=== PATIENT | male | born 1955 | race Caucasian/White ===

== ENCOUNTER 2022-06-09 06:10 | Day surgery (SDC) | payer MEDICARE, OTHER ==
[~2022-06-09] VITALS: Ht 175.3 cm; Wt 99.8 kg
[~2022-06-09 06:10] MED LIST: AMLODIPINE BESY10 MG PO; BISOPROLOL-HCT1 EAC2 PO; CYCLOBENZAPRINE5 MG PO; FISH OIL + D31 EACH PO; LISINOPRIL-HCT1 EAC1 PO; NAPROXEN500 MG PO; NORCO 5-325 TA1 EACH PO; TERAZOSIN HCL10 MG PO; VASCEPA1 GM PO
--- NOTE | 2022-06-09 08:05 | NUR ---
06/09/22 0805 Valeria Baker 0801 PATIENT ARRIVES TO PACU AWAKE BUT DROWSY. RESP EVEN AND UNLABORED, NC AT 3 LITERS. PASSING GAS.
--- NOTE | 2022-06-09 08:41 | NUR ---
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 PT HERE FOR HIS FIRST SCOPE-DID NOT SEEM TO TOLERATE PREP WELL. PT MENTIONED HIS SISTER WILL BE HERE AT [place]. THANKED ME FOR VISIT AND FOR CARING FOR HIS MOTHER THAT PASSED HERE RECENTLY AT [facility]. GAVE BLESSING AND WILL FOLLOW
--- NOTE | 2022-06-11 18:06 | PATH ---
[facility] [address] [facility] [place] [place], [place] [address] Signed SPECIMEN(S): A POLYP AT 20 CM SPECIMEN SOURCE: A. POLYP AT 20 CM CLINICAL HISTORY: Rectal hemorrhage. Postop Dx: Multiple diverticula, polyp. FINAL PATHOLOGIC DIAGNOSIS: Colon, 20 cm, polypectomy: - Benign colonic mucosa with prominent intramucosal lymphoid aggregate. - An additional fragment of colonic epithelium is within normal limits. - No evidence of neoplasia. COMMENT: Sections of colonic tissue demonstrate a benign intramucosal lymphoid aggregate. Intramucosal lymphoid aggregates can sometimes appear as polyps endoscopically. They have no clinical significance. There is no evidence of dysplasia or malignancy. TWK:rolly:C2NR MICROSCOPIC EXAMINATION: Histologic sections of all submitted blocks are examined by light microscopy. These findings, together with the gross examination, support the pathologic diagnosis. GROSS DESCRIPTION: The specimen, labeled and designated "Keisha, colon polyp at 20 cm," is received in formalin and consists of two jerez soft tissue fragments, ranging from 0.2 cm. Entirely submitted in (A1). JS (under the direct supervision of a pathologist) The Gross Description was prepared using a voice recognition system. The report was reviewed for accuracy; however, sound-alike word errors, addition and/or deletions may occur. If there is any question about this report, please contact Client Services. PERFORMING LABORATORY: The technical component was performed by [facility], [address] [place] [id number] (CLIA# [id number]). The professional interpretation was performed by [facility], [facility], [address] [place] [address] (CLIA#: PATIENT NAME: JAMAL HAHN PATHOLOGY DATE OF : 53 REPORT #: [id number] PHYSICIAN: YUE PATHOLOGY PCP: VICKY CHAVEZ PA-C REPORT IS CONFIDENTIAL AND NOT TO BE RELEASED WITHOUT AUTHORIZATION [facility] [address] [place], [place] [address] Signed [id number]). Diagnostician: Dominic Wallace MD Pathologist Electronically Signed 06/11/2022 Copies: ~ PATIENT NAME: JAMAL HAHN PATHOLOGY DATE OF : 53 REPORT #: [id number] PHYSICIAN: YUE PATHOLOGY PCP: VICKY CHAVEZ PA-C REPORT IS CONFIDENTIAL AND NOT TO BE RELEASED WITHOUT AUTHORIZATION
--- NOTE | 2022-06-12 08:29 | OR ---
[facility] [address] [place], [place] [address] Signed DATE OF OPERATION: 06/09/2022 SURGEON: Bernice Bynum MD PREOPERATIVE DIAGNOSES: Episodic rectal bleeding. POSTOPERATIVE DIAGNOSES: 1. Extensive diverticulosis. 2. Hyperplastic polyp, sigmoid colon. 3. Minimal hemorrhoidal changes. PROCEDURES: Total colonoscopy to cecum with cold morcellation polypectomy x1. ANESTHESIA: Intravenous sedation, fentanyl 100 mcg, Versed 6 mg. INDICATION: This 66-year-old white man is a patient of CON[facility] Heller. He has never undergone colonoscopy in the past. He does have episodic rectal bleeding without pain and considered likely to have hemorrhoidal disease. He does have past medical history of appendectomy [place] [address] Russ Chamberlain. He has no family history of colon cancer. His rectal bleeding is episodic and colonoscopy has been recommended on the basis of his bleeding as well as never having undergone colonoscopy in the past. The risks of bleeding, infection, and perforation related to colonoscopy were reviewed with him in detail. He understands and wished to proceed. FINDINGS: The prep was quite good. Complete colonoscopy was undertaken to the cecum without question. He had extensive diverticulosis most dominantly in the sigmoid and left-side is scattered elsewhere also. He had a small hyperplastic polyp of the sigmoid, which was excised. Retroflexed view did not show extensive hemorrhoidal change. There were hemorrhoidal cushions as would be expected, however. There was no sign of blood. DESCRIPTION OF PROCEDURE: The patient was brought to the endoscopy suite and placed in lateral decubitus position, given intravenous sedation to the point of slurred speech and nystagmus. Digital rectal examination was normal. Electronically Signed By: BERNICE BYNUM MD 06/12/22 0829 PATIENT NAME: JAMAL HAHN OPERATIVE REPORT DATE OF : 53 REPORT #: [id number] PHYSICIAN: BERNICE BYNUM MD PCP: SASKIA JOSEPH PA-C REPORT IS CONFIDENTIAL AND NOT TO BE RELEASED WITHOUT AUTHORIZATION [facility] [address] [place], [place] [address] Signed An Olympus video colonoscope was passed in the rectum and manipulated throughout the colon ultimately intubating the cecum itself. The ileocecal valve and appendiceal orifice were normal. There were numerous diverticula seen throughout the colon, most dominantly in the sigmoid and left colon. The scope was withdrawn and examination throughout showed only diverticular changes until the sigmoid where a small hyperplastic polyp was noted. This was excised with cold morcellation technique without problem. The scope was further withdrawn to the rectum and retroflexed view undertaken. There was only minimal hemorrhoidal change. No sign of active bleeding or large hemorrhoids at this time. The scope was removed and the patient was taken to the recovery room in good condition. CONCLUDING DIAGNOSES: 1. Extensive diverticulosis. 2. Minimal hemorrhoidal disease. 3. Hyperplastic polyp, sigmoid. PLAN: We will prescribe Metamucil one scoop p.o. daily. If he is still bleeding after four weeks, consider banding of hemorrhoidal disease in the office setting. We will schedule an appointment for 4-6 weeks, anticipating that as a possibility. MD ANA Rutherford/BRITNIL /[id number] cc: Saskia Joseph PA-C Copies: SASKIA JOSEPH PA-C ~ Electronically Signed By: BERNICE BYNUM MD 06/12/22 0829 PATIENT NAME: JAMAL HAHN OPERATIVE REPORT DATE OF : 53 REPORT #: [id number] PHYSICIAN: BERNICE BYNUM MD PCP: SASKIA JOSEPH PA-C REPORT IS CONFIDENTIAL AND NOT TO BE RELEASED WITHOUT AUTHORIZATION
== END 2022-06-09 08:45 | disposition home or self-care (01) ==
LOC: OPS 06:10 → DS 06:10 → OPS 07:30 → DS 07:30 → OPS 08:45
PROVIDERS: ATTEND Surgery
PROC: 0DBN8ZX Excision of Sigmoid Colon, Via Natural or Artificial Opening Endoscopic, Diagnostic (ICD-10-PCS; principal; 2022-06-09 07:30)
DX: K63.5 Polyp of colon (principal); K57.30 Diverticulosis of large intestine without perforation or abscess without bleeding; K64.9 Unspecified hemorrhoids; I10 Essential (primary) hypertension; M62.08 Separation of muscle (nontraumatic), other site
CPT/HCPCS: 99153; G0500; J2250; J3010; J7121